=== PATIENT | female | born 1985 | race Two or more races ===

== ENCOUNTER 2021-02-24 06:59 | Emergency (ER) | payer BC ==
[~2021-02-24] VITALS: Ht 162.6 cm; Wt 65.8 kg
--- NOTE | 2021-02-24 07:10 | NUR ---
Patient is refusing to have VS check and an EKG done. Dr. Glass at bedside for eval.
--- NOTE | 2021-02-24 07:14 | NUR ---
Patient verbally discharged by Dr. Glass. Patient refused to wait for any paperworks and left the facility in stable condition.
== END 2021-02-24 07:17 | disposition home or self-care (01) ==
LOC: ER 07:05
DX: R00.2 Palpitations (principal); R07.89 Other chest pain

== ENCOUNTER 2024-11-01 09:52 | Emergency (ER) | payer BC ==
[~2024-11-01] VITALS: Ht 165.1 cm; Wt 65.8 kg
[2024-11-01 10:25] VITALS: BP 153/117; TEMP 97.9
[2024-11-01 12:10] VITALS: O2SAT 96
== END 2024-11-01 12:11 | disposition home or self-care (01) ==
LOC: ER 09:55
DX: S82.092A Other fracture of left patella, initial encounter for closed fracture (principal); W18.39XA Other fall on same level, initial encounter; Y93.89 Activity, other specified; Y92.89 Other specified places as the place of occurrence of the external cause; Y99.8 Other external cause status
CPT/HCPCS: 73564-TC